=== PATIENT | male | born 1990 | race Caucasian/White ===

== ENCOUNTER 2016-08-13 12:23 | Emergency (ER) | payer OTHER ==
[~2016-08-13] VITALS: Ht 165.1 cm; Wt 59.1 kg
[2016-08-13 12:36] VITALS: BP 149/104; PULSE 90; RESP 14; O2SAT 96
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
[2016-08-13 16:58] VITALS: BP 126/77; PULSE 60; RESP 14; O2SAT 100
== END 2016-08-13 16:59 | disposition home or self-care (01) ==
LOC: SED 12:23
DX: S06.0X9A Concussion with loss of consciousness of unspecified duration, initial encounter (principal); M25.512 Pain in left shoulder; V18.0XXA Pedal cycle driver injured in noncollision transport accident in nontraffic accident, initial encounter; Y93.55 Activity, bike riding; Y92.9 Unspecified place or not applicable; Y99.8 Other external cause status